=== PATIENT | male | born 1940 | race Caucasian/White ===

== ENCOUNTER 2018-09-10 08:52 | Day surgery (SDC) | payer MEDICARE ==
[2018-09-10] MEDS ORDERED: PROPOFOL 10 MG/ML VIAL IV ONE (08:53)
[2018-09-10] MEDS ORDERED: LIDOCAINE 2% MDV (20MG/ML) 20ML VIAL IV ONE (08:53)
--- NOTE | 2018-09-11 16:00 | Operative Note ---
DATE OF SURGERY: 09/10/18 OPERATION: COLONOSCOPY with cold snare polypectomy x2. PREOPERATIVE DIAGNOSIS: Personal history of colon polyps. POSTOPERATIVE DIAGNOSES: 1. Fair quality colonic preparation. 2. Moderately to severely enlarged hemorrhoids. 3. Colon polyps. PREPARATION QUALITY: Fair. ESTIMATED BLOOD LOSS: Minimum. SPECIMENS: Ascending colon and rectal polyps. COMPLICATIONS: None. PROCEDURE: After informed consent was obtained from the patient, he was placed in the left lateral decubitus position in the endoscopy suite, sedated and monitored by the department of anesthesia. Digital rectal exam was unremarkable. A well-lubricated [id number] colonoscope was inserted into the rectum and advanced to the cecum. Preparation quality was fair. Numerous areas were rinsed. The ascending colon revealed a 5 mm sessile polyp removed with a cold snare. This polyp was retrieved. Minimal bleeding was noted. The remainder of the ascending colon, transverse colon, descending colon, and sigmoid colon were unremarkable other than scattered particulate stool which was rinsed and aspirated. The prep was fair. The rectum revealed a 5 mm sessile polyp removed with a cold snare. Minimal bleeding noted. The polyp was retrieved. J-turn views of the anorectum revealed moderately to severely enlarged hemorrhoids. The endoscope was straightened, the rectal ampulla deflated, and the endoscope was removed. RECOMMENDATIONS: The patient will require repeat colonoscopy in 3 years barring any unusual tissue histology. In addition, I would recommend he be seen by Colorectal Surgery for his hemorrhoids. He and his are in agreement. Referral will be made to [facility]. As always, thank you for allowing me to participate in the healthcare of your patients. CC: DO SHAHANA Cole
--- NOTE | 2018-09-15 09:57 | Operative Note ---
DATE OF SURGERY: 09/10/18 OPERATION: COLONOSCOPY with cold snare polypectomy x2. PREOPERATIVE DIAGNOSIS: Personal history of colon polyps. POSTOPERATIVE DIAGNOSES: 1. Fair quality colonic preparation. 2. Moderately to severely enlarged hemorrhoids. 3. Colon polyps. PREPARATION QUALITY: Fair. ESTIMATED BLOOD LOSS: Minimum. SPECIMENS: Ascending colon and rectal polyps. COMPLICATIONS: None. PROCEDURE: After informed consent was obtained from the patient, he was placed in the left lateral decubitus position in the endoscopy suite, sedated and monitored by the department of anesthesia. Digital rectal exam was unremarkable. A well-lubricated [id number] colonoscope was inserted into the rectum and advanced to the cecum. Preparation quality was fair. Numerous areas were rinsed. The ascending colon revealed a 5 mm sessile polyp removed with a cold snare. This polyp was retrieved. Minimal bleeding was noted. The remainder of the ascending colon, transverse colon, descending colon, and sigmoid colon were unremarkable other than scattered particulate stool which was rinsed and aspirated. The prep was fair. The rectum revealed a 5 mm sessile polyp removed with a cold snare. Minimal bleeding noted. The polyp was retrieved. J-turn views of the anorectum revealed moderately to severely enlarged hemorrhoids. The endoscope was straightened, the rectal ampulla deflated, and the endoscope was removed. RECOMMENDATIONS: The patient will require repeat colonoscopy in 3 years barring any unusual tissue histology. In addition, I would recommend he be seen by Colorectal Surgery for his hemorrhoids. He and his are in agreement. Referral will be made to [facility]. As always, thank you for allowing me to participate in the healthcare of your patients. CC: DO SHAHANA Cole
== END 2018-09-10 09:55 | disposition home or self-care (01) ==
LOC: HOP 08:52
PROVIDERS: ATTEND Internal Medicine Gastroenterology
DX: Z12.11 Encounter for screening for malignant neoplasm of colon (principal); Z86.010 Personal history of colon polyps; D12.2 Benign neoplasm of ascending colon; D12.8 Benign neoplasm of rectum; K64.8 Other hemorrhoids; I10 Essential (primary) hypertension; E78.00 Pure hypercholesterolemia, unspecified; K21.9 Gastro-esophageal reflux disease without esophagitis